=== PATIENT | female | born 1985 | race Two or more races ===

== ENCOUNTER 2020-04-10 04:04 | Inpatient (IN) | payer MEDICAID, OTHER ==
[~2020-04-10] VITALS: Ht 157.5 cm; Wt 94.8 kg
[2020-04-10] VITALS (8 sets, daily range): BP systolic 95–118; BP diastolic 53–69
[2020-04-10] MEDS ORDERED: LACTATED RINGER'S 1,000 ML IV ONE (05:01)
[2020-04-10] MEDS ORDERED: LACTATED RINGER'S 1,000 ML IV SCH (05:01)
[2020-04-10] MEDS ORDERED: TERBUTALINE SULFATE 1 MG/ML 1ML VIAL SC ONE (05:12)
[2020-04-10] MEDS ORDERED: cefTRIAXone 1GM/50ML D5W 50 ML IV ONE (05:12)
[2020-04-10] MEDS: TERBUTALINE SULFATE 1 MG/ML 1ML VIAL SC SCH ×3 (05:15→06:21)
[2020-04-10 07:05] LABS: Basophils # (auto) 0 10 ^3/uL (0-0.2); Basophils % (auto) 0.2 % (0.0-2.0); Eosinophils # (auto) 0.1 10 ^3/uL (0-0.8); Eosinophils % (auto) 0.4 % (0.0-7.0); Hematocrit 40.6 % (36.0-46.0); Hemoglobin 13.3 g/dL (12.2-16.2); Lymphocytes # (auto) 3.7 10 ^3/uL (0.4-5.4); Lymphocytes % (auto) 23.2 % (10.0-50.0); Mean Corpuscular Hemoglobin 28.5 pg (28.0-32.0); Mean Corpuscular Hgb Conc. 32.7 g/dL (32.0-36.0); Mean Corpuscular Volume 87.1 fL (80.0-100.0); Monocytes # (auto) 0.9 10 ^3/uL (0-1.3); Monocytes % (auto) 5.4 % (0.0-12.0); Neutrophils # (auto) 11.4 10 ^3/uL (1.6-8.6); Neutrophils % (auto) 70.8 % (37.0-80.0); Platelet Count (auto) 235 10^3/uL (140-450); Red Blood Cells 4.66 10^6/uL (4.0-5.20); Red Cell Distribution Width 13.8 % (11.8-14.3)
[2020-04-10 07:27] LABS: Albumin 2.5 g/dL (3.4-5.0); BUN/Creatinine Ratio 7.9; Calcium 8.3 mg/dL (8.5-10.1)
[2020-04-10 07:29] LABS: Bilirubin, Total 0.3 mg/dL (0.2-1.0); Total Protein 6.7 g/dL (6.4-8.2)
[2020-04-10 07:50] LABS: INR 0.95 (0.9-1.15); Partial Thromboplastin Time 26.2 sec (23.64-32.05)
[2020-04-10 09:56] LABS: Urine Bacteria MOD /hpf (None Seen); Urine Blood Negative /uL (Negative); Urine Specific Gravity 1.002 (1.001-1.035); Urine WBC <1 /hpf (0 - 5)
[2020-04-10] MEDS ORDERED: MORPHINE SULF(PF) 0.5MG/ML 10ML VIAL ONE (11:03)
[2020-04-10] MEDS ORDERED: fentaNYL CITRATE 100 MCG/2 ML VL ONE (11:03)
[2020-04-10] MEDS ORDERED: oxyTOCIN 10 UNIT/ML 10ML VIAL IV ONE (11:40)
[2020-04-10] MEDS ORDERED: ceFAZolin 1GM VL IV ONE (11:40)
[2020-04-10] MEDS ORDERED: ONDANSETRON HCL 4 MG/2 ML VIAL IV PRN ×2 (12:30)
[2020-04-10] MEDS ORDERED: diphenhdrAMINE HCL 50 MG/1 ML VL IV PRN (12:30)
[2020-04-10] MEDS ORDERED: KETOROLAC TROMETH 30 MG/ML 1ML VIAL IV PRN (12:30)
[2020-04-10] MEDS ORDERED: ceFAZolin 1GM/50ML 50 ML IV SCH (12:30)
[2020-04-10] MEDS ORDERED: NALOXONE HCL 0.4 MG/ML VIAL IV PRN (12:30)
[2020-04-10] MEDS ORDERED: HYDROmorphone HCL 2 MG/ML VL IV PRN (12:30)
[2020-04-10] MEDS ORDERED: ACETAMINOPHEN IV 1000 MG/100ML (10MG/ML) IV ONE (12:30)
[2020-04-10] MEDS: KETOROLAC TROMETH 30 MG/ML 1ML VIAL IV SCH (17:00)
[2020-04-10] MEDS: LACTATED RINGER'S 1,000 ML IV SCH (18:17)
[2020-04-10] MEDS: ceFAZolin 1GM/50ML 50 ML IV SCH (20:12)
[2020-04-11 03:15] VITALS: BP 96/63
[2020-04-11] MEDS: ceFAZolin 1GM/50ML 50 ML IV SCH (04:08)
[2020-04-11] MEDS: LACTATED RINGER'S 1,000 ML IV SCH (05:03)
[2020-04-11] MEDS: KETOROLAC TROMETH 30 MG/ML 1ML VIAL IV SCH (05:04)
[2020-04-11 06:41] LABS: Basophils # (auto) 0 10 ^3/uL (0-0.2); Basophils % (auto) 0.3 % (0.0-2.0); Eosinophils # (auto) 0.1 10 ^3/uL (0-0.8); Eosinophils % (auto) 0.5 % (0.0-7.0); Hematocrit 34.5 % (36.0-46.0); Hemoglobin 11.7 g/dL (12.2-16.2); Lymphocytes % (auto) 17.1 % (10.0-50.0); Mean Corpuscular Hemoglobin 29.4 pg (28.0-32.0); Mean Corpuscular Hgb Conc. 33.9 g/dL (32.0-36.0); Mean Corpuscular Volume 86.8 fL (80.0-100.0); Monocytes # (auto) 0.8 10 ^3/uL (0-1.3); Monocytes % (auto) 6.9 % (0.0-12.0); Neutrophils # (auto) 8.7 10 ^3/uL (1.6-8.6); Neutrophils % (auto) 75.2 % (37.0-80.0); Nucleated Red Blood Cells % 0.1 %; Platelet Count (auto) 209 10^3/uL (140-450); Red Blood Cells 3.97 10^6/uL (4.0-5.20); Red Cell Distribution Width 14.3 % (11.8-14.3); White Blood Cell 11.6 10^3/uL (4.4-10.8)
[2020-04-11 06:45] VITALS: BP 96/59
[2020-04-11] MEDS ORDERED: SIMETHICONE 80 MG CHEWABLE TABLET PO PRN (09:15)
[2020-04-11] MEDS: POTASSIUM CHL 20 Meq TABLET PO SCH ×2 (09:51→23:39)
[2020-04-11] MEDS: DOCUSATE SOD 100 MG CAP PO SCH ×2 (09:51→23:39)
[2020-04-11] MEDS: HYDROcodone-ACET 5/325MG TAB PO PRN ×2 (09:52→20:23)
[2020-04-11] MEDS ORDERED: FERR27TA2 PO (10:08)
[2020-04-11] MEDS ORDERED: PREN-96 PO (10:09)
[2020-04-11 11:00] VITALS: BP 105/61
[2020-04-11] MEDS: IBUPROFEN 800 MG TAB PO PRN ×2 (13:44→23:45)
[2020-04-11 15:25] VITALS: BP 106/70
[2020-04-11 18:30] VITALS: BP 103/58
[2020-04-11 23:00] VITALS: BP 112/78
[2020-04-12 03:00] VITALS: BP 96/55
[2020-04-12] MEDS: IBUPROFEN 800 MG TAB PO PRN (07:24)
[2020-04-12 07:30] VITALS: BP 103/73
[2020-04-12] MEDS: POTASSIUM CHL 20 Meq TABLET PO SCH ×2 (10:21→22:12)
[2020-04-12] MEDS: DOCUSATE SOD 100 MG CAP PO SCH ×2 (10:21→22:11)
[2020-04-12 11:22] VITALS: BP 112/75
[2020-04-12] MEDS: HYDROcodone-ACET 5/325MG TAB PO PRN ×2 (11:23→16:48)
[2020-04-12 15:17] VITALS: BP 108/68
[2020-04-12 19:00] VITALS: BP 120/67
[2020-04-12 23:00] VITALS: BP 123/76
[2020-04-13 03:00] VITALS: BP 113/68
[2020-04-13] MEDS: IBUPROFEN 800 MG TAB PO PRN (03:21)
[2020-04-13 06:45] VITALS: BP 97/65
[2020-04-21 12:32] LABS: RPR Non Reactive (Non Reactive)
== END 2020-04-13 08:45 | disposition home or self-care (01) | DRG 540 ==
LOC: LDRP 04:04 → OBSVTOIN 09:49 → LDRP 19:34
PROVIDERS: ADMIT Specialist; ATTEND Specialist
PROC: 0UB70ZZ Excision of Bilateral Fallopian Tubes, Open Approach (ICD-10-PCS; 2020-04-10)
PROC: 0DNU0ZZ Release Omentum, Open Approach (ICD-10-PCS; 2020-04-10)
PROC: 10D00Z1 Extraction of Products of Conception, Low, Open Approach (ICD-10-PCS; principal; 2020-04-10 10:57)
DX: O34.211 Maternal care for low transverse scar from previous cesarean delivery (principal); E87.6 Hypokalemia; K66.0 Peritoneal adhesions (postprocedural) (postinfection); Z37.0 Single live birth; Z3A.38 38 weeks gestation of pregnancy; O69.81X0 Labor and delivery complicated by cord around neck, without compression, not applicable or unspecified; O99.284 Endocrine, nutritional and metabolic diseases complicating childbirth; Z11.59 Encounter for screening for other viral diseases
CPT/HCPCS: 36415; 59025; 76818; 80053; 81001; 81002; 84112; 84132; 85025; 85610; 85730; 86592; 86850; 86900; 86901; 87340; 94762; 96360; 96361; 96365; 96372; G0378; J0131; J0690; J0696; J1885; J2590